=== PATIENT | female | born 2000 | race Caucasian/White ===

== ENCOUNTER 2023-04-12 12:27 | Emergency (ER) | payer OTHER, BC, SELFPAY ==
[2023-04-12 12:48] VITALS: BP 110/72; PULSE 82; RESP 14; TEMP 36.7; O2SAT 97; BMI 29.2
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
== END 2023-04-12 14:37 | disposition home or self-care (01) ==
PROVIDERS: Emergency Provider Emergency Medicine Emergency Medical Services
DX: S39.012A Strain of muscle, fascia and tendon of lower back, initial encounter (principal); S46.912A Strain of unspecified muscle, fascia and tendon at shoulder and upper arm level, left arm, initial encounter
CPT/HCPCS: 99283; 99284

== ENCOUNTER 2023-04-18 12:04 | Outpatient (CLI) | payer BC, SELFPAY ==
--- NOTE | 2023-04-18 12:15 | CRLHL7_ITS ---
For Patients: As a result of the Cures Act, medical imaging exams and procedure reports are released immediately into your electronic medical record. You may view this report before your referring provider. If you have questions, please contact your health care provider. INDICATION: First trimester scan, establish dates. COMPARISON: None. TECHNIQUE: Real-time alegre-scale imaging of the pelvis was performed. FINDINGS: Sonographic imaging demonstrates a single living intrauterine gestation. The embryo demonstrates a regular cardiac rate measuring 180 beats per minute. The embryo`s crown-rump length measurement of 1.7 cm corresponds to a gestational age of 8 weeks 1 day with a sonographic due date of 11/27/2023. There is a normal-appearing yolk sac. There are no gross abnormalities noted within the embryo at this early state of development. The gestational sac has a normal appearance. There is a 5 x 3 x 3 millimeter perigestational hemorrhage. The amount of fluid within the sac appears appropriate for gestational age. The cervix is closed. The myometrium appears normal. Corpus luteal cyst right ovary measuring 3.2 x 2.6 x 2.9 cm. Normal left ovary. Trace pelvic free fluid noted. IMPRESSION: Single living intrauterine with sonographic gestational age 8 weeks 1 day and sonographic due date 11/27/2023. Small lower uterine segment subchorionic hemorrhage measuring 5 millimeters. Dictated by Ritesh Cruz MD @ 04/19/2023 6:28:44 AM (Electronically Signed)
== END 2023-04-18 12:05 | disposition home or self-care (01) ==
LOC: US 12:05
PROVIDERS: Visit Provider Advanced Practice Midwife
DX: Z34.91 Encounter for supervision of normal pregnancy, unspecified, first trimester (principal); O20.9 Hemorrhage in early pregnancy, unspecified; Z3A.08 8 weeks gestation of pregnancy
CPT/HCPCS: 76817; 86703; 86706; 86803; 86850; 86900; 86901; 87086; 87186; 87340

== ENCOUNTER 2023-04-18 13:42 | Outpatient (CLI) | payer BC, SELFPAY | END 2023-04-18 13:43 | disposition home or self-care (01) | PROVIDERS: Visit Provider Advanced Practice Midwife | DX: Z34.91 Encounter for supervision of normal pregnancy, unspecified, first trimester (principal); O20.9 Hemorrhage in early pregnancy, unspecified; Z3A.08 8 weeks gestation of pregnancy | CPT/HCPCS: 86592; 86703; 86704; 86706; 86762; 86787; 86803; 86850; 86900; 86901; 87086; 87186; 87340 ==

== ENCOUNTER 2023-05-16 11:37 | Outpatient (CLI) | payer BC, SELFPAY | END 2023-05-16 11:38 | disposition home or self-care (01) | LOC: NFLDREF 05-17 22:08 | PROVIDERS: Visit Provider Obstetrics & Gynecology | DX: Z34.91 Encounter for supervision of normal pregnancy, unspecified, first trimester (principal); M41.9 Scoliosis, unspecified; M54.6 Pain in thoracic spine; Z3A.12 12 weeks gestation of pregnancy | CPT/HCPCS: 87491; 87591 ==

== ENCOUNTER 2023-07-07 12:48 | Outpatient (CLI) | payer BC, SELFPAY ==
--- NOTE | 2023-07-07 13:00 | CRLHL7_ITS ---
For Patients: As a result of the Century Cures Act, medical imaging exams and procedure reports are released immediately into your electronic medical record. You may view this report before your referring provider. If you have questions, please contact your health care provider. INDICATION: Evaluate anatomy. COMPARISON: 04/18/2023 TECHNIQUE: Real time alegre scale imaging of the fetus was performed as well as color Doppler analysis of the umbilical vessels. FINDINGS: Sonographic imaging demonstrates a single living intrauterine gestation. Fetus demonstrates a regular cardiac rate of 152 beats per minute. Fetus has a breech position. The placenta lies posteriorly without evidence of placenta previa. Edge of the placenta located 8.2 cm from the internal cervical os. Amniotic fluid volume appears normal. Single deepest vertical pocket: 4.1 cm. The cervix is closed and measures 3.7 cm in length. The composite ultrasound gestational age is calculated at 19 weeks 4 days with an estimated sonographic due date of 11/27/2023. The estimated weight is 350 grams which lies at the 67th %. The following biometric measurements were obtained: Biparietal diameter: 4.0 cm/18 weeks 1 day less than 3rd% Head circumference: 16.4 cm/19 weeks 1 day 10th% Abdominal circumference: 15.7 cm/20 weeks 6 days 71st% Femur length: 3.3 cm/20 weeks 3 days 57th% The HC/AC ratio measures: 1.05 range (1.08-1.26) On anatomic survey, there is a normal appearance of the cerebral ventricles, cavum septi pellucidi, cisterna magna and cerebellum. The nose, lips, and facial profile appear normal. The cervical, thoracic and lumbar spine are well visualized and appear normal. Echogenic intracardiac focus left ventricle. The left and right ventricular outflow tracts appear normal. The diaphragm and stomach appear normal. The kidneys and bladder also appear normal. There is a normal three-vessel cord and cord insertion site. The four extremities appear normal. IMPRESSION: Concordance of clinical and sonographic dating. Left ventricular echogenic focus. Level 2 ultrasound recommended. Remainder anatomic survey normal. Estimated weight 67th percentile. Abdominal circumference 71st percentile. BPD less than 3rd percentile. HC 10th percentile. Dictated by Ritesh Cruz MD @ 07/07/2023 3:11:30 PM (Electronically Signed)
== END 2023-07-07 12:49 | disposition home or self-care (01) ==
LOC: US 12:51
PROVIDERS: Visit Provider Advanced Practice Midwife
DX: Z34.92 Encounter for supervision of normal pregnancy, unspecified, second trimester (principal); Z3A.19 19 weeks gestation of pregnancy
CPT/HCPCS: 76805

== ENCOUNTER 2023-07-12 14:30 | Outpatient (RCR) | payer BC, SELFPAY | END 2023-11-02 10:04 | disposition home or self-care (01) | PROVIDERS: Visit Provider Obstetrics & Gynecology | DX: Z34.90 Encounter for supervision of normal pregnancy, unspecified, unspecified trimester (principal); M41.9 Scoliosis, unspecified; M54.6 Pain in thoracic spine; N39.3 Stress incontinence (female) (male); R39.14 Feeling of incomplete bladder emptying; R10.2 Pelvic and perineal pain; M25.552 Pain in left hip; Z51.89 Encounter for other specified aftercare | CPT/HCPCS: 97110; 97112; 97161; 97535 ==

== ENCOUNTER 2023-09-02 13:13 | Outpatient (CLI) | payer BC, SELFPAY | END 2023-09-02 13:14 | disposition home or self-care (01) | LOC: NFLDREF 09-14 14:14 | PROVIDERS: Visit Provider Advanced Practice Midwife | DX: Z34.93 Encounter for supervision of normal pregnancy, unspecified, third trimester (principal) | CPT/HCPCS: 86592 ==

== ENCOUNTER 2023-10-14 15:30 | Outpatient (CLI) | payer BC, SELFPAY | END 2023-10-14 15:31 | disposition home or self-care (01) | LOC: NFLDREF 11-03 09:04 | PROVIDERS: PCP Advanced Practice Midwife; Referring Provider Advanced Practice Midwife; Visit Provider Advanced Practice Midwife | DX: Z34.93 Encounter for supervision of normal pregnancy, unspecified, third trimester (principal) | CPT/HCPCS: 82728 ==

== ENCOUNTER 2023-10-28 11:30 | Outpatient (CLI) | payer BC, SELFPAY | END 2023-10-28 11:31 | disposition home or self-care (01) | LOC: NFLDREF 11-17 14:16 | PROVIDERS: Referring Provider Advanced Practice Midwife; Visit Provider Advanced Practice Midwife | DX: Z34.03 Encounter for supervision of normal first pregnancy, third trimester (principal) | CPT/HCPCS: 87081; 87653 ==

== ENCOUNTER 2023-12-01 05:42 | Inpatient (IN) | payer BC, SELFPAY ==
[2023-12-01] VITALS (48 sets, daily range): BP systolic 84–135; BP diastolic 50–91; PULSE 65–109; RESP 12–20; TEMP 36.6–37; O2SAT 94–100; BMI 33.7
[2023-12-01] MEDS: hydrOXYzine pamoate 25 MG CAPSULE 100 MG PO (00:53)
[2023-12-01] MEDS: MORPHINE 10 MG/ML inj IM (00:54)
[2023-12-01] MEDS: AMPICILLIN 2 GM in 0.9 % SODIUM CHLORIDE Mini-bag 100 ML IVPB (06:03)
[2023-12-01] MEDS: LACTATED RINGERS 1000 ML 1,000 ML IV (06:03)
--- NOTE | 2023-12-01 06:05 | P.LDBA_ITS ---
Subjective History of Present Illness Narrative: Ainsley is a 23 yo at 41 0/7 weeks gestation being admitted to Labor and Delivery for spontaneous onset of labor. Her contractions started yesterday and became more intense throughout the day. She presented to triage last night. She was 2/80/-3 but painfully camden. She was offered morphine and Vistaril with discharge home or monitoring/therapeutic sleep. After receiving morphine, she did side lying release then she was able to rest for a few hours. Her contractions spaced and became irregular. On recheck, she had made good cervical change. Recommend admission due to post-dates and for antibiotic administration. She is GBS +. Her labor is supported by her boyfriend and her mother. Her full history and physical was dictated by Renetta Novak CNM on 11/04/2023. Please see this for details. Specific Issues/Plans G1 H & P done 11/04/23 by Renetta Novak 1. Hx of anxiety and depression. Mostly in teens; no medication or therapy at this time 2. Scoliosis Has not been evaluated since high school Thoracic back pain at 12 weeks: PT referral Consider Anesthesia consult: completed 09/11, see note 3. Asymptomatic bacteriuria at 1st OB: E coli, treated with antibiotics 4. 20 wk Anatomy scan: echogenic focus, BPD ,3%, HC 10% Referral to perinatology placed for level II: normal exam, no further evaluation recommended. Offered genetic screening, declined 5. Anemia at 28 weeks. Starting PO iron. 6. GBS positive, ok with antibiotics in labor COVID: first series done in 2020 Flu: 04/18/2023 Tdap: 09/16/2023 32wk Mental Health: 09/30/2023 34wk Hgb: 10/14/2023 OB - Problem Based A/P Additional Plan (1) Pain during labor: Status: Acute (2) Post term , 41 weeks: Status: Acute (3) Group B Streptococcus carrier, antepartum: Status: Acute Plan ASSESSMENT:? 23 at 41.0 weeks gestation? Post-term complicated by:?Hx of Anxiety/Depression, scoliosis, asymptomatic bacteriuria in early , anemia Labor type: Spontaneous, Early labor? Category 1 FHR pattern.?? Labor complicated by: n/a? GBS positive? ? PLAN:? 1. Routine intrapartum cares as ordered. Continue with expectant management. Discussed that we could AROM if needed after antibiotics have been in for at least 2 hours. 2. Monitoring per policy, continuous after morphine and patient was in bed. She can be switched to intermittent if baby is reactive this morning. 3. Planning unmedicated . Desires water . Consent signed. Hep C negative. Candidate for analgesia of choice if desired.?? 4. Patient encouraged to reposition and ambulate to promote physiologic labor and .? 5. GBS prophylaxis initiated for GBS positive status. Will treat with antibiotics per protocol. 6. Anticipate ? Delivery/Labor/Induction Plan Plan: expectant management OB Exam Physical Exam Vital signs: Temp Pulse BP 98.0 F 91 112/62 12/01/23 00:08 12/01/23 05:47 12/01/23 05:47 Narrative: Vitals Reviewed Constitutional:? Alert and oriented x3 HEENT:? Normocephalic, atraumatic Neck:? Supple Lungs:? Clear to auscultation bilaterally Heart:? Regular rate and rhythm, no murmur, rub or gallop Abdomen:? Soft, nontender, and gravid. Vertex by Sae's, confirmed with cervical exam. Extremities:? No edema or erythema Cervix: 5 cm/100%/-1 station/vertex with bulging bag of water per RN NST: 120 bpm/moderate variability/15x15 accelerations/no dec elerations/contractions irregular
--- NOTE | 2023-12-01 08:07 | PM.OBPNL ---
Subjective Time Seen by Provider: 08:00 Date Seen: 12/01/23 Narrative: Ainsley is still waking up from the morphine Vistaril she received over night and still somewhat groggy. Contractions did space out after this medication but she still camden every 4-9 minutes and they are starting to feel more uncomfortable again. We discussed options for continuing labor including expectant management and AROM. She would like to proceed with expectant management at this time and will consider AROM later if labor doesn't continue to progress on its own. Encouraged labor warm up and upright positions. She is supported by her partner and her parents. Objective Vital Signs: Last Vital Signs Temp 98.4 F 12/01/23 07:25 Pulse 88 12/01/23 07:25 Resp 12 12/01/23 07:25 BP 107/58 L 12/01/23 07:25 Contractions Monitor mode: External Contraction Frequency: 4-9 Contraction pattern: Irregular Contraction intensity: Moderate Assessment Assessment: early labor Heart Rate Baseline: 125 [employer] Variability: Moderate (6-25) Monitor Accelerations: Present Monitor Decelerations: None Plan Plan: ASSESSMENT:? 23 at 41.0 weeks gestation? Post-term complicated by:?Hx of Anxiety/Depression, scoliosis, asymptomatic bacteriuria in early , anemia Labor type: Spontaneous, Early labor? Category 1 FHR pattern.?? Labor complicated by: n/a? GBS positive? ? PLAN:? 1. Routine intrapartum cares as ordered. Continue with expectant management. Will consider AROM later if not progressing on her own. 2. Monitoring per policy. 3. Planning unmedicated . Desires water . Consent signed. Hep C negative. Candidate for analgesia of choice if desired.?? 4. Patient encouraged to reposition and ambulate to promote physiologic labor and .? 5. GBS prophylaxis continued for GBS positive status. Will treat with antibiotics per protocol. 6. Anticipate ?
[2023-12-01] MEDS: AMPICILLIN 1 GM in 0.9 % SODIUM CHLORIDE Mini-bag 100 ML IVPB ×3 (09:27→22:16)
--- NOTE | 2023-12-01 11:49 | PM.OBPNL ---
Subjective Time Seen by Provider: 11:45 Date Seen: 12/01/23 Narrative: Ainsley has been upright changing positions and using labor ball. She is coping well with contractions. She denies an increase in intensity at this time. SVE performed with informed consent and found to be unchanged at 5cm/90%/-1 with a bulging bag. We discussed options of continuing with expectant management or AROM. She would like to proceed with AROM. Risks and benefits discussed. Moderate amount of thin meconium stained fluid noted with AROM. Encouraged her to continue with labor circuits and upright positions. She is aware that she can request hydrotherapy whenever she desires. Objective Vital Signs: Last Vital Signs Temp 98.4 F 12/01/23 07:25 Pulse 88 12/01/23 07:25 Resp 12 12/01/23 07:25 BP 107/58 L 12/01/23 07:25 Pelvic Exam Dilation (cm): 5 Effacement (%): 90 Station: -1 Contractions Monitor mode: External Contraction Frequency: 4-5 min Contraction pattern: Regular Contraction intensity: Moderate Assessment Assessment: early labor Station: -1 Amniotic Membrane Status: AROM (light mec fluid) Status: Category l Heart Rate Baseline: 130 Healthcare Social Worker Variability: Moderate (6-25) Monitor Accelerations: Present Monitor Decelerations: None Plan Plan: ASSESSMENT:? 23 at 41.0 weeks gestation? Post-term complicated by:?Hx of Anxiety/Depression, scoliosis, asymptomatic bacteriuria in early , anemia Labor type: Spontaneous, Early labor? Category 1 FHR pattern.?? Labor complicated by: light meconium stained fluid GBS positive? ? PLAN:? 1. Routine intrapartum cares as ordered. Continue with expectant management after AROM. 2. Monitoring per policy, intermittent if baby is reactive after AROM and fluid remains light stained and not thick stained. 3. Planning unmedicated . Desires water . Consent signed. Hep C negative. Candidate for analgesia of choice if desired.?? 4. Patient encouraged to reposition and ambulate to promote physiologic labor and .? 5. GBS prophylaxis continued for GBS positive status per protocol. 6. Anticipate .?
[2023-12-01] MEDS: ONDANSETRON 2 MG/ML inj 4 MG IV (17:52)
[2023-12-01] MEDS: LIDOCAINE 2% (PF) 5 ML VIAL EPIDURAL (20:00)
--- NOTE | 2023-12-01 20:12 | PM.OBPNL ---
Subjective Time Seen by Provider: 19:30 Date Seen: 12/01/23 Narrative: Ainsley has continued to labor in the tub and in upright positions. She is coping well with contractions but is having back pain that is getting more difficult for her to cope with. She is using nitrous for some relief. She is supported by her partner, mom and nursing staff. she requested an epidural and a SVE was offered before a final decision was made. She had not made cervical change from and earlier RN exam so made the decision to get an epidural. She is content with this plan and declined other options at this time. Objective Vital Signs: Last Vital Signs Temp 97.8 F 12/01/23 19:29 Pulse 87 12/01/23 20:11 Resp 20 12/01/23 19:29 BP 122/81 12/01/23 20:11 Pulse Ox 100 12/01/23 20:08 Pelvic Exam Dilation (cm): 7 Effacement (%): 90 Station: -1 Contractions Monitor mode: External Contraction Frequency: 2-4 min Contraction pattern: Regular Contraction intensity: Strong/Firm Assessment Assessment: active labor Station: -1 Amniotic Membrane Status: AROM (light mec fluid) Status: Category l Heart Rate Baseline: 130 Care Home Variability: Moderate (6-25) Monitor Accelerations: Present Monitor Decelerations: None Plan Plan: ASSESSMENT:? 23 at 41.0 weeks gestation? Post-term complicated by:?Hx of Anxiety/Depression, scoliosis, asymptomatic bacteriuria in early , anemia Labor type: Spontaneous, active labor? Category 1 FHR pattern.?? Labor complicated by: light meconium stained fluid GBS positive? ? PLAN:? 1. Routine intrapartum cares as ordered. Continue with expectant management. 2. Monitoring per policy, continuous monitoring after epidural placement per unit policy. 3. Patient encouraged to work with nursing change positions to promote physiologic labor and .? 5. GBS prophylaxis continued for GBS positive status per protocol. 6. Anticipate .?
[2023-12-01] MEDS: ROPIVACAINE 0.2 % PF 10 ML INJ 20 MG EPIDURAL (20:20)
[2023-12-01] MEDS: ROPIVACAINE 0.2% 100 ml 100 ML 12 MG EPIDURAL (20:21)
--- NOTE | 2023-12-01 20:23 | P.ANBPRC_ITS ---
[facility] Medical History (Updated 12/01/23 @ 06:29 by Danielle Hung CNM) Anxiety and depression ?F41.9 - Anxiety disorder, unspecified (ICD-10) ?F32.A - Depression, unspecified (ICD-10) Surgical History (Updated 04/18/23 @ 13:53 by Danielle Hung CNM) [place] teeth removed ?K08.409 - Partial loss of teeth, unspecified cause, unspecified class (ICD- 10) Social History (Updated 04/19/23 @ 15:21 by Danielle Hung CNM) Narrative: SOCIAL Education: High school Work: employed Partner: Present Lives with: alone Pets: none Abuse: Denies past/present Special Diet: Denies Ok with a blood transfusion: yes Culture or christian beliefs: denies RISK FACTORS Exercise Times/wk: sometimes, 1-2 times a week Depression/Anxiety: hx of anxiety and depression HARMEET: 6 PHQ 9: 3 Seat Belt Use: Routinely Smoking: Denies past/present Alcohol/day: Denies while Caffeine: once in a while Drug Use: Denies past/present Chicken Pox: Yes as a child MRSA: Denies What is your current living situation?: I presently have a place to live Problems where you live: no known problems In the past 12 months, utilities in danger of being shut off: no In past 12 months, lack of transportation kept you from medical appts, meetings, work, or getting things needed for daily living: no In the past 12 mos, have been you worried that your food would run out before you had money to buy more?: never true In the past 12 mos, the food you bought just didn't last and you didn't have money to buy more?: never true Smoking Status: Former smoker How often does anyone, including family, friends and others, physically hurt you : never How often does anyone, including family, friends and others, insult or talk down to you: never How often does anyone, including family, friends and others, threaten you with harm: never How often does anyone, including family, friends and others, scream or curse at you: never Little interest or pleasure in doing things: not at all Feeling down, depressed, or hopeless: several days Meds Home Medications and Allergies Home Medications ?Medication ?Instructions ?Recorded ?Confirmed ?Type vit no.95-ferrous 1 tab PO DAILY 04/12/23 12/01/23 History fumarate 28 mg-folic acid 800 mcg tablet () aspirin 81 mg tablet,delayed 81 mg PO QDAY 07/07/23 12/01/23 History release (Adult Aspirin Regimen) ferrous sulfate 27 mg iron tablet 27 mg PO QDAY 09/16/23 12/01/23 History Allergies Allergy/AdvReac Type Severity Reaction Status Date / Time No Known Drug Allergies Allergy Verified 11/29/23 06:53 Results Vital Signs Vital Signs: Last Vital Signs Temp 97.8 F 12/01/23 19:29 Pulse 89 12/01/23 20:21 Resp 20 12/01/23 19:29 BP 98/60 12/01/23 20:21 Pulse Ox 100 12/01/23 20:18 Weight: 89 kg Height: 162.56 cm Anesthesia Procedures Epidural Insertion Patient Location: OB Start Time: 19:40 Stop Time: 20:23 Start Date: 12/01/23 Stop Date: 12/01/23 Reason for Block: procedure for pain Patient Position: sitting Performed By: Anuel Gomez Preanesthetic Checklist: IV checked, risks and benefits discussed, surgical consent, monitors and equipment checked, pre-op evaluation, timeout performed and anesthesia consent Prep: chlorhexidine gluconate Monitoring: blood pressure monitoring, continuous pulse oximetry and heart rate Approach: midline Vertebral Space: lumbar (1-5) Epidural Technique: BALJIT air Needle Type: Tuohy needle Injection Technique: continuous catheter Needle gauge: 17 Needle Length (cm): 10 cm Needle Insertion Depth (cm): 7 Catheter Gauge: 19 Catheter Type: multi-orifice Catheter at skin depth (cm): 12 Test Dose Result: negative and lidocaine 1.5% with epinephrine 1 to 200,000
[2023-12-01] MEDS: PHENYLEPHRINE 100 MCG/ML SYRINGE IVP (21:13)
[2023-12-01] MEDS: LACTATED RINGERS 1000 ML 1,000 ML 125 ML IV (22:13)
[2023-12-02] VITALS (17 sets, daily range): BP systolic 95–133; BP diastolic 56–95; PULSE 81–137; RESP 14–15; TEMP 36.7–36.9; O2SAT 97–98
--- NOTE | 2023-12-02 01:00 | P.OBPN_ITS ---
Subjective Date Seen: 12/02/23 Narrative: Marciano has an epidural in place that has given her great pain relief. She began to feel pressure around 2300 and was found to be complete. She began pushing shortly after that. She is pushing effectively in multiple different positions. Objective Vital Signs: Last Vital Signs Temp 98.1 F 12/01/23 21:31 Pulse 109 H 12/02/23 00:40 Resp 20 12/01/23 19:29 BP 114/71 12/02/23 00:40 Pulse Ox 100 12/01/23 21:19 Pelvic Exam Dilation (cm): 10 Effacement (%): 100 Station: +1 Contractions Monitor mode: External Contraction Frequency: 2-4 min Contraction pattern: Regular Contraction intensity: Strong/Firm Assessment Assessment: active labor Station: -1 Amniotic Membrane Status: AROM (light mec fluid) Status: Category l Heart Rate Baseline: 140 Drug And Alcohol Counsellor Variability: Moderate (6-25) Monitor Accelerations: Present Monitor Decelerations: None Plan Plan: ASSESSMENT:? 23 at 41.1 weeks gestation? Post-term complicated by:?Hx of Anxiety/Depression, scoliosis, asymptomatic bacteriuria in early , anemia Labor type: Spontaneous, active labor? Category 1 FHR pattern.?? Labor complicated by: light meconium stained fluid GBS positive? ? PLAN:? 1. Routine intrapartum cares as ordered. Continue with expectant management. 2. Continuous monitoring per policy. 3. Patient encouraged to work with nursing change positions to promote physiologic labor and .? 5. GBS prophylaxis continued for GBS positive status per protocol. 6. Anticipate .
[2023-12-02] MEDS: AMPICILLIN 1 GM in 0.9 % SODIUM CHLORIDE Mini-bag 100 ML IVPB ×2 (01:40→02:42)
[2023-12-02] MEDS: OXYTOCIN 30 unit/500 ML in NS 30 UNIT/500 ML BAG 300 UNIT IVPB (02:33)
[2023-12-02] MEDS: LIDOCAINE 1 % PF 30 ML INJECTION (02:39)
--- NOTE | 2023-12-02 02:59 | W.PM.OBVAGDE ---
OB Procedure Vag Delivery Mother Details Mother Details: The patient is a 23 year-old, 1, Para 0, admitted on 12/01/23 at 41.1 Days gestation. : 1 Para: 1 Weeks Gestation: 41.1 Admission Date: 12/01/23 Additional Details Amniotic Membrane Status: AROM Amniotic Membrane Rupture Date: 12/01/23 Amniotic Membrane Rupture Time: 11:38 Amniotic Membrane Fluid Description: Meconium Stained Analgesia/Anesthesia Type: Epidural Waterbirth: No Pitcoin: Yes (AMTSL) Intrapartal Events: Labor Augmentation, Prolonged Labor >20 Hrs and Prolonged 2nd Stage >2.5 Hrs Delivery augmentation: rupture of membranes Labor Onset: 05:30 Complete: 23:02 Pushin:05 Heart: heart tones during second stage were category 2. Baseline 140-150 with accels, moderate variability and some variable decels. Delivery Details Delivery Date: 12/02/23 Delivery Time: 02:27 Route of delivery: Infant Gender: Female Viability: Alive; Heart Rate Present Position at Delivery: OP Delivery Details: Patient was admitted for active labor post dates and progressed with AROM augmentation. AROM noted at 1138 with thin meconium stained fluid. Patient was complete at 2302 and pushing at 2305. of a viable female at 0227 on her back after many position changes thought the second stage. Vertex delivered LOP. No nuchal cord or shoulder. Body delivered easily and without incident. Infant passed to mothers abdomen with a vigorous cry. Cord was clamped and cut at > 5 minutes. APGARS were 7 at one minute and 9 at five minutes respectively. Mouth was bulb suctioned. Intact placenta with a 3 vessel cord delivered spontaneously at 0234. Fundus firm. 2nd degree identified and repaired in typical fashion. QBL 200 cc. Mother and baby stable; mother plans to breastfeed. weight pending.? 1 Minute Interval Total Score: 7 5 Minute Interval Total Score: 9 Additional Details Shoulder Dystocia: No Placenta Delivery Time: 02:34 Placental Delivery Description: Spontaneous Delivery repair: Vicryl Procedure Done: Global Blood Loss: 200 Laceration: Perineal - 2nd Degree Episiotomy Description: None Blood Loss Measurement Type: QBL Bakri Used: No Sponge/Need Count Correct: Yes Cord Vessel Description: 3 Vessels Event Summary Status: Mother and were stable after delivery. Disposition: floor
[2023-12-02] MEDS: IBUPROFEN 600 MG TABLET PO ×3 (04:31→17:40)
[2023-12-02] MEDS: DOCUSATE SODIUM 100 MG CAPSULE PO (09:29)
--- NOTE | 2023-12-02 13:36 | PM.ANPOST ---
Post Anesthesia Note Post Anesthesia Note Patient seen: Inpatient Respiratory Status: adequate Cardiovascular Status: adequate Mental Status: baseline Pain: adequate Temp: baseline Anesthetic awareness: N/A Complications: none Follow care: none
[2023-12-02 18:46] LABS: Rapid Plasma Reagin (RPR) Non Reactive (Non Reactive)
[2023-12-03 00:12] VITALS: BP 102/68; PULSE 93; RESP 16; TEMP 36.7; O2SAT 97
[2023-12-03 04:26] VITALS: BP 102/68; PULSE 89; RESP 16; TEMP 36.8; O2SAT 97
[2023-12-03 09:44] VITALS: BP 108/68; PULSE 101; RESP 16; O2SAT 97
--- NOTE | 2023-12-03 10:20 | PM.OBDSVD1 ---
DS: Providers Provider Date Seen: 12/03/23 Date of admission: 12/01/23 05:42 Primary care physician: Not a Local Provider Admitting Clinician: Danielle Hung CNM Attending Physician on discharge: Danielle Hung CNM DS: Diagnosis Discharge Diagnosis (1) care and examination immediately after delivery: Status: Acute (2) Lactating mother: Status: Acute Exam Narrative: Exam Narrative: GENERAL APPEARANCE:? normal affect, alert, no distress MOOD:? appropriate CHEST:? clear to auscultation HEART:? regular rate and rhythm ABDOMEN:? soft, non-tender the uterine fundus is At Umbilicus, Midline and is appropriate for the stage of recovery. PERINEUM:? mild edema of the perineum, there is a Perineal Laceration,?2nd degree, that is healing well. EXTREMITIES:? normal and no edema Const: Vital Signs, click to edit/add: Vital Signs - 24 hr 12/02/23 14:09 12/02/23 16:48 12/02/23 19:27 Temperature 98.3 F 98.5 F 98.1 F Pulse Rate [Pulse Oximeter] 88 98 93 Respiratory Rate 14 15 15 Blood Pressure [Ri ght Arm] 104/65 109/72 104/71 Pulse Oximetry 98 98 97 Oxygen Delivery Me thod Room Air Room Air 12/03/23 00:12 12/03/23 04:26 12/03/23 09:44 Temperature 98.1 F 98.2 F Pulse Rate [Pulse Oximeter] 93 89 101 H Respiratory Rate 16 16 16 Blood Pressure [Ri ght Arm] 102/68 102/68 108/68 Pulse Oximetry 97 97 97 Oxygen Delivery Me thod Room Air Room Air Room Air Documenting provider has reviewed patient's vital signs: yes OB - DS: Summary Hospital Course Hospital Course: Ainsley is a 23 y.o. G 1 P 1 who was admitted to [facility] & [facility] for spontaneous onset of labor. ?She had a NVD that was uncomplicated. The patient feels well. ?The pain is well controlled with current medications. ?She has no new complaints. ?She is breast feeding and reports things are going well. the patient has done well.? Vitals have been stable.? She has remained afebrile.? Has a good appetite, is tolerating a general diet. ?She is voiding without difficulty.? She is passing gas and has not had a bowel movement.? She is ambulating and denies any dizziness.? Has small amount of rubra lochia. She is planning condoms for prevention. Problems: none plan: Discharge home with baby. Follow up in 2 weeks and 6 weeks. , may see if needed Hgb 10.0. Iron supplement ordered orally every other day Peripartum Data Infant delivery method: Vaginal Laceration description: Perineal - 2nd Degree complications: none Infant Gender: Female Infant Discharge Plan: Home Status at Discharge Functional status at discharge: independent ambulation Overall status at discharge: patient is progressing back to baseline Time Spent with Patient Time attestation: Total time spent providing and/or coordinating discharge services: Time spent: Less than 30 minutes Discharge Plan Discharge Disposition: Home, Self-Care Date of Admission: 12/01/23 05:42 Attending Provider on Discharge: Danielle Hung Primary Care Provider: Provider,Not a Local Condition: Stable Anticipated Discharge Date/Time: 12/03/23 12:00 Discharge Medications: New docusate sodium 100 mg Capsule 100 mg PO DAILY Qty: 90 0RF ibuprofen 600 mg Tablet 600 mg PO Q6H PRNQty: 60 0RF Continued ferrous sulfate 27 mg iron tablet 27 mg PO QDAY PNV cmb#[id number]-ferrous fumarate-FA [] 28 mg iron- 800 mcg tablet 1 tab PO DAILY Discontinued aspirin [Adult Aspirin Regimen] 81 mg tablet,delayed release (DR/EC) 81 mg PO QDAY Discharge Orders: Discharge Order (Routine); Ordered 12/03/23 Ordered By: Danielle Hung Patient Education: OB Over the Counter Medication Information, OB Vaginal/Breast Feeding Additional Instructions: Discharge instructions were reviewed with the patient including signs and symptoms of infection and home going medications Nothing vaginally for 6 weeks: no tampons or intercourse Do not drive while taking narcotic pain medication(s) Off Work or School for 6 weeks 2-week visit: discuss feeding concerns, review control options and screen for anxiety/depression. 6-week visit for an annual exam. consultation services are available to all mothers and babies for the first year after delivery.? To make an appointment, please call [phone]. Activity Level: Activity as Tolerated Discharge Diet: Regular Follow Up Appointments: [facility] [Provider Group] Forms: MyHealth Info Instructions
== END 2023-12-03 11:45 | disposition home or self-care (01) | DRG 560 ==
LOC: OB OUT 05:43 → OB 12-03 10:24
PROVIDERS: Advanced Practice Midwife; Admitting Provider Advanced Practice Midwife; Visit Provider Advanced Practice Midwife
DX: O48.0 Post-term pregnancy (principal); O99.824 Streptococcus B carrier state complicating childbirth; O77.0 Labor and delivery complicated by meconium in amniotic fluid; M41.9 Scoliosis, unspecified; O63.0 Prolonged first stage (of labor); O63.1 Prolonged second stage (of labor); O70.1 Second degree perineal laceration during delivery; Z37.0 Single live birth; Z3A.41 41 weeks gestation of pregnancy
CPT/HCPCS: 01967; 36415; 59025; 84112; 85018; 86592; G0463; A9270; J0290; J2001; J2270; J2371; J2405; J2795; J7120

== ENCOUNTER 2024-09-21 12:02 | Outpatient (CLI) | payer BC, SELFPAY ==
--- NOTE | 2024-09-21 12:15 | CRLHL7_ITS ---
For Patients: As a result of the Cures Act, medical imaging exams and procedure reports are released immediately into your electronic medical record. You may view this report before your referring provider. If you have questions, please contact your health care provider. OB ULTRASOUND INDICATION: Dating and viability. TECHNIQUE: Real time grayscale imaging of the fetus was performed. Transvaginal. LMP: 07/22/2024. TORREY by LMP: 04/28/2025. GA: 8 w, 5 d. Previous US: No. CRL: 2.1 cm. 8 w 5 d. TORREY: 04/28/2025. FHR: 176 BPM. Gestational sac: 3.6 cm. Appears within normal limits. Yolk sac: 3.2 mm. Appears within normal limits. Right ovary: 2.7 x 2.9 x 2.1 cm. CL. Left ovary: 2.2 x 1.6 x 1.9 cm. IMPRESSION: Normal early IUP with gestational age 8 weeks 5 days and sonographic due date 04/28/2025. Ritesh Cruz M.D. Diagnostic Radiologist [email or web address] [email or web address] dale/Dictated by: Ritesh Cruz MD @ 09/21/2024 1:04:00 PM (Electronically Signed)
== END 2024-09-21 12:03 | disposition home or self-care (01) ==
LOC: US 12:03
PROVIDERS: Visit Provider Advanced Practice Midwife
DX: Z34.91 Encounter for supervision of normal pregnancy, unspecified, first trimester (principal); Z3A.08 8 weeks gestation of pregnancy
CPT/HCPCS: 76817; 83021; 86592; 86703; 86704; 86706; 86762; 86787; 86803; 86850; 86900; 86901; 87086; 87340; 87491; 87591

== ENCOUNTER 2024-12-07 11:59 | Outpatient (CLI) | payer BC, SELFPAY ==
--- NOTE | 2024-12-07 12:15 | CRLHL7_ITS ---
For Patients: As a result of the Century Cures Act, medical imaging exams and procedure reports are released immediately into your electronic medical record. You may view this report before your referring provider. If you have questions, please contact your health care provider. TORREY by LMP: 07/22/2024. GA: 19w, 5d. INDICATION: screen. CERVIX: Visualized. Measurement: 4.7 cm. POSITIONING: Multiple positions. AMNIOTIC FLUID: 4.9 cm SDP. PLACENTA: Technique: Transabdominal. PLACENTA POSITION: Fundal. Placenta tip to internal os: 10.2 cm. DOPPLER: heart rate: 159 bpm. Umbilical artery: 3-vessel cord. Placental insertion: Central. Biometry: BPD: 4.7 cm. 20w, 1d, 66 percent. HC: 17.3 cm. 19w, 6d, 51 percent. AC: 16.5 cm. 21w, 4d, 92 percent. FL: 3.2 cm. 19w, 6d, 49 percent. FL/AC ratio: 19.32 percent. HC/AC ratio: 1.05. SURVEY: Observed Structures Cerebellum: Yes. 2.0 cm; 20w 1d. Cisterna Magna: Yes. 3.1 mm. Nuchal Fold: Yes. 5.6 mm. Lateral Ventricle: Yes. 6.1 mm. CSP: Yes. Midline Falx: Yes. Choroid Plexus: Yes. Spine: Yes. Stomach: Yes. Abd Cord Insertion: Yes. Urinary Bladder: Yes. Kidneys: Yes. Diaphragm: Yes. Nose/lips: Yes. Orbital view: es. Profile: Yes. Upper Extremities: Yes. Lower Extremities: Yes. Hands: Yes. Feet: Yes. Four-Chamber Heart: Yes. LVOT: Yes. RVOT: Yes. 3VV: Yes. 3VTV: Yes. EFW: 369 g. Weight: 0 lbs, 13 oz. age by this US: 20w, 2d. TORREY by this US: 04/24/2025. Percentile by TORREY: 92 percent. IMPRESSION: 1. Concordance of clinical and sonographic dating. 2. Normal anatomic survey. Ritesh Cruz M.D. Diagnostic Radiologist [email or web address] bM/Dictated by: Ritesh Cruz MD @ 12/10/2024 4:27:00 PM (Electronically Signed)
== END 2024-12-07 12:00 | disposition home or self-care (01) ==
LOC: US 12:00
PROVIDERS: Visit Provider Advanced Practice Midwife
DX: Z34.92 Encounter for supervision of normal pregnancy, unspecified, second trimester (principal); Z3A.19 19 weeks gestation of pregnancy
CPT/HCPCS: 76805

== ENCOUNTER 2024-12-27 14:03 | Outpatient (CLI) | payer BC, SELFPAY | END 2024-12-27 14:04 | disposition home or self-care (01) | LOC: NFLDREF 14:04 | PROVIDERS: Visit Provider Advanced Practice Midwife | DX: R30.0 Dysuria (principal) | CPT/HCPCS: 87086 ==

== ENCOUNTER 2025-02-05 14:28 | Outpatient (CLI) | payer BC, SELFPAY | END 2025-02-05 14:29 | disposition home or self-care (01) | LOC: NFLDREF 02-11 01:46 | PROVIDERS: Visit Provider Midwife | DX: Z34.93 Encounter for supervision of normal pregnancy, unspecified, third trimester (principal); Z3A.28 28 weeks gestation of pregnancy | CPT/HCPCS: 86592 ==

== ENCOUNTER 2025-03-18 14:50 | Outpatient (CLI) | payer BC, SELFPAY | END 2025-03-18 14:51 | disposition home or self-care (01) | LOC: NFLDREF 03-24 03:27 | PROVIDERS: Visit Provider Advanced Practice Midwife | DX: Z34.93 Encounter for supervision of normal pregnancy, unspecified, third trimester (principal) | CPT/HCPCS: 82728 ==

== ENCOUNTER 2025-04-01 14:17 | Outpatient (CLI) | payer BC, SELFPAY ==
[2025-04-02 15:01] LABS: Strep B DNA Probe Negative (Negative)
[2025-04-02 15:10] LABS: Strep B Susceptibility Needed? No
== END 2025-04-01 14:18 | disposition home or self-care (01) ==
LOC: NFLDREF 14:18
PROVIDERS: Visit Provider Midwife
DX: Z34.83 Encounter for supervision of other normal pregnancy, third trimester (principal)
CPT/HCPCS: 87081; 87653

== ENCOUNTER 2025-04-24 22:00 | Inpatient (IN) | payer BC, SELFPAY ==
[2025-04-24 21:31] VITALS: BP 111/75; PULSE 105
[2025-04-24 21:41] VITALS: RESP 16; TEMP 36.8
[2025-04-24 22:06] VITALS: BMI 33.5
[2025-04-24 22:40] VITALS: RESP 16; TEMP 36.5
[2025-04-24 23:49] VITALS: BP 102/65; PULSE 99; RESP 16; TEMP 36.3
[2025-04-25] VITALS (17 sets, daily range): BP systolic 96–123; BP diastolic 52–78; PULSE 100–111; RESP 16–18; TEMP 36.7–36.9; O2SAT 96–98
[2025-04-25 01:14] LABS: Hematocrit* 34.8 % (33.0-51.0); Hemoglobin* 11.6 gm/dL (12.0-16.0); Immature Granulocytes Pct Auto 1.6 %; Mean Corpuscular HGB Conc 33 gm/dL (32-36); Mean Corpuscular Hemoglobin 28 pg (26-34); Mean Corpuscular Volume 85 fL (80-100); RDW Coefficient of Variation % 15.8 % (11.5-15.5); Red Blood Count* 4.10 m/uL (4.00-5.20); White Blood Count* 11.59 K/uL (4.50-11.00)
[2025-04-25 01:20] LABS: Immature Granulocytes Abs Auto 0.20 K/uL (0.00-0.30); Lymphocytes Absolute Auto 1.10 K/uL (0.90-2.90); Slide Review Reflex No
[2025-04-25] MEDS: LACTATED RINGERS 1000 ML 1,000 ML 1200 ML IV (02:25)
--- NOTE | 2025-04-25 02:48 | P.LDBA_ITS ---
Subjective History of Present Illness Narrative: Ainsley is a 24 yo at 39 4/7 weeks being admitted to Labor and Delivery for PROM followed by spontaneous labor. She arrived to triage around 9 pm last evening with a convincing story of SROM where she felt a pain in her side and hear an audible pop around 8 pm. She has been leaking clear fluid which was very evident on her pad when she arrived. Labor contractions started very shortly after SROM but were initially irregular but have slowly became more intense. We discussed a plan of expectant management for 6-12 hours to allow labor to begin on its own. She was 3 cm/70/-2 at 2317. She is supported in labor by her partner, Eloy. Her full history and physical was dictated by ARMAND Musa on 04/08/2026. Please see this for details. Specific Issues/Plans Partner: Eloy Unknown gender. H&P by Brisa Toro CNM on 04/08/25 # Close spaced pregnancies. ~8 months to LMP. # Hx of anxiety and depression. Mostly in teens; no medication or therapy at this time # Scoliosis. Received epidural with 1st delivery. #Anemia in - started iron at 28w qod Received iron dextran 03/22/25 restart oral iron supplement 04/15/25 Hgb 10.9 at 37 wks-received IV iron 03/22 COVID: initial series, not boosted, declined booster today Flu: 04/08/2025 RSV: declines 32 wk Mental Health: 03/01/2025 PHQ-9: 2 HARMEET-7: TDAP 03/01/25 OB - Problem Based A/P Additional Plan (1) 39 weeks gestation of : Status: Acute (2) PROM with onset of labor within 24 hours of rupture: Status: Acute (3) Anxiety and depression: Status: Chronic Plan ASSESSMENT:? 24 yo at 39.4 weeks gestation? complicated by:?closely spaced , hx of anxiety/depression, scoliosis, anemia Labor type: Spontaneous, Active labor? Category 1 FHR pattern.?? Labor complicated by: none? GBS negative? ? PLAN:? 1. Routine intrapartum cares as ordered. Continue with expectant management. We had discussed 6-12 hours of expectant management but it seems labor may be kicking in. 2. Monitoring per policy, intermittent? 3. Planning unmedicated . Desires water . Consent signed. Hep C negative. Candidate for analgesia of choice, if desired.?? 4. Patient encouraged to reposition and ambulate to promote physiologic labor and .? 5. Anticipate ? Delivery/Labor/Induction Plan Plan: expectant management OB Exam Physical Exam Vital signs: Temp Pulse Resp BP 98.5 F 99 16 102/65 04/25/25 01:07 04/24/25 23:49 04/25/25 01:07 04/24/25 23:49 Narrative: Vitals Reviewed Constitutional:? Alert and oriented x3 HEENT:? Normocephalic, atraumatic Neck:? Supple Lungs:? Clear to auscultation bilaterally Heart:? Regular rate and rhythm, no murmur, rub or gallop Abdomen:? Soft, nontender, and gravid. Vertex by Sae's, confirmed with c ervical exam. Extremities:? No edema or erythema Cervix: 7 cm/90%/0 station/vertex NST: 145 bpm/moderate variability/15x15 accelerations/no decelerations/contractions every 1-3 minutes, palpate moderate/strong Detailed Labor and Delivery Exam Patient Gravid: yes
--- NOTE | 2025-04-25 03:58 | W.PM.OBVAGDE ---
OB Procedure Vag Delivery Mother Details Mother Details: The patient is a 24 year-old, 2, now Para 2, admitted on 04/24/25 at 39.4 weeks gestation that presented with PROM and onset of labor shortly after arrival. : 2 Para: 2 Weeks Gestation: 39.4 Admission Date: 04/25/25 Additional Details Amniotic Membrane Status: SROM Amniotic Membrane Rupture Date: 04/25/25 Amniotic Membrane Rupture Time: 19:45 Amniotic Membrane Fluid Description: Clear Analgesia/Anesthesia Type: None Waterbirth: Yes Pitcoin: No (desired expectant management) Intrapartal Events: Precipitous Labor <3 Hrs Labor Onset: 02:08 Complete: 02:59 Pushin:59 Heart: heart tones during second stage were not auscultated during due to precip delivery. Delivery Details Delivery Date: 04/25/25 Delivery Time: 03:13 Route of delivery: Infant Gender: Female Infant Viability: Alive; Heart Rate Present Position at Delivery: OA Delivery Details: Patient was admitted for PROM with spontaneous labor shortly after arrival and progressed normally. SROM of clear fluid at 1945 on 04/24. Patient labored in the small tub before requesting and epidural. Anesthesia did arrive to the unit but patient began to feel pressure and did not feel she could sit for the epidural. She then entered the waterbirth tub. Patient was assumed complete with pushing at 0259. of a viable female at 0313 in semi-fowlers in the tub. Head delivered but patient did not have contraction, she was guided to push and her left leg was brought back to help as she was instructed to push. Vertex delivered OA. No nuchal cord or shoulder. Body delivered easily and without incident. Infant passed to mothers abdomen with a vigorous cry. Cord was clamped and cut at > 5 minutes. APGARS were 8 at one minute and 9 at five minutes respectively. Mouth was bulb suctioned. Intact placenta with a 3 vessel cord delivered spontaneously at 0328. Fundus firm. Small 1st degree identified, well approximated and not bleeding. QBL 25 +EBL 25 for total 50 cc. Mother and baby stable; mother plans to breastfeed. Infant weight 8lb 1oz. 1 Minute Interval Total Score: 8 5 Minute Interval Total Score: 9 Additional Details Shoulder Dystocia: No Placenta Delivery Time: 03:28 Placental Delivery Description: Spontaneous Delivery repair: Vicryl Procedure Done: Global Blood Loss: 50 Laceration: Perineal - 1st Degree (not repaired) Blood Loss Measurement Type: QBL (+EBL in tub) Bakri Used: No Cord Vessel Description: 3 Vessels Event Summary Status: Mother and were stable after delivery. Disposition: floor
[2025-04-25] MEDS: IBUPROFEN 600 MG TABLET PO (15:36)
[2025-04-25] MEDS: DOCUSATE SODIUM 100 MG CAPSULE PO (15:36)
[2025-04-26 00:15] VITALS: BP 108/63; PULSE 100; RESP 16; TEMP 36.6; O2SAT 97
[2025-04-26 03:45] VITALS: BP 106/69; PULSE 65; RESP 16; O2SAT 98
[2025-04-26] MEDS: DOCUSATE SODIUM 100 MG CAPSULE PO (09:21)
[2025-04-26 09:47] VITALS: BP 112/72; PULSE 84; RESP 16; TEMP 36.8; O2SAT 96
--- NOTE | 2025-04-26 13:37 | P.DS_ITS ---
DS: Providers Provider Time Seen by Provider: 12:00 Date Seen: 04/26/25 Primary care physician: Not a Local Provider Admitting Clinician: Danielle Hung CNM Attending Physician on discharge: Denita Stewart CNM Date of Discharge: 04/26/25 DS: Diagnosis Discharge Diagnosis (1) care and examination of lactating mother: Status: Acute (2) Hemorrhoids: Status: Acute (3) Anemia affecting in third trimester: Status: Acute Problem details: oral started 02/05/25 (4) Lactating mother: Status: Acute (5) Anxiety and depression: Status: Chronic Problem details: Reviewed s/sx of normal baby blues vs PP depression and anxiety. Pt denies prior hx of depression or anxiety. Exam Narrative: Exam Narrative: GENERAL APPEARANCE:? normal affect, alert, no distress? MOOD:? appropriate? CHEST:? clear to auscultation and percussion? HEART:? regular rate and rhythm? BREASTS: soft, nontender, no erythema, nipples intact? ABDOMEN:? soft, non-tender the uterine fundus is firm and is appropriate for the stage of recovery.? PERINEUM:? mild edema of the perineum, intact.? EXTREMITIES:? normal and no edema? Const: Vital Signs, click to edit/add: Vital Signs - 24 hr 04/25/25 15:38 04/25/25 19:37 04/26/25 00:15 Temperature 98.1 F 98.1 F 97.8 F Pulse Rate [Pulse Oximeter] 103 H 104 H 100 Respiratory Rate 16 16 16 Blood Pressure [Le ft Arm] 108/63 Blood Pressure [Ri ght Arm] 103/70 105/65 Pulse Oximetry 97 98 97 Oxygen Delivery Me thod Room Air Room Air Room Air 04/26/25 03:45 04/26/25 09:47 Temperature 98.2 F Pulse Rate [Pulse Oximeter] 65 84 Respiratory Rate 16 16 Blood Pressure [Le ft Arm] 106/69 112/72 Blood Pressure [Ri ght Arm] Pulse Oximetry 98 96 Oxygen Delivery Me thod Room Air Room Air OB - DS: Summary Hospital Course Hospital Course: The patient is a 24 year old G 2 P 2002 at 39 weeks gestation that was admitted to the Center on 04/24/25 for labor. She had an uncomplicated vaginal delivery. She delivered a viable female . She is breast feeding. Postpartu m the patient has done well. Peripartum Data delivery method: Vaginal Laceration description: None complications: none [place] Gender: Female Discharge Plan: Home Status at Discharge Functional status at discharge: independent ambulation Overall status at discharge: patient is progressing back to baseline Time Spent with Patient Time attestation: Total time spent providing and/or coordinating discharge services: Time spent: Less than 30 minutes Discharge Plan Discharge Disposition: Home, Self-Care Date of Admission: 04/24/25 22:00 Attending Provider on Discharge: Denita Stewart Primary Care Provider: Provider,Not a Local Condition: Stable Anticipated Discharge Date/Time: 04/26/25 09:45 Discharge Medications: New docusate sodium 100 mg capsule 100 mg PO BID PRNQty: 30 0RF Continued PNV 119-iron fum-folic acid 29 mg iron- 1 mg tablet 1 tab PO DAILY triamcinolone acetonide 0.5 % cream 1 applic topical TID Qty: 15 0RF hydrocortisone 2.5 % cream with perineal applicator 1 applic ME BID-QID PRN (Reason: hemorrhoids) Qty: 30 2RF Discharge Orders: Discharge Order (Routine); Ordered 04/26/25 Ordered By: Denita Stewart Consulting provider completed their portion of the discharge: Yes Patient Education: OB Over the Counter Medication Information, OB Vaginal/Breast Feeding Additional Instructions: Discharge instructions were reviewed with the patient including signs and symptoms of infection and home going medications.? Lifting Restrictions: 20 pounds for 6? weeks? ?? Off Work or School for 6 weeks.? ?? Symptoms to report to doctor:? -Bleeding that saturates more than one pad per hour? -Passing clots larger than the size of a golf ball? -Pain not relieved by prescribed medication? -Fever above 100.4 degrees Fahrenheit? -A foul vaginal odor? -Difficulty in emotions, mood and functions? -Thoughts of hurting yourself and/or ? -Painful, reddened area in your breast? -Any drainage, redness or tenderness in your IV/epidural site? -Severe headache that doesn't improve after taking medications? -Changes in vision, including temporary loss of vision, blurred vision, and/or light sensitivity? -Upper abdominal pain (usually under ribs on the right side)? -Decrease in urination or painful, frequent urinating? -Chest pain? -Shortness of breath? -Tenderness or pain with redness and/swelling in the calf(s) of your leg? ?? Follow Up in clinic in 2 and 6 weeks.?Please call the [facility] to schedule these follow up appointments. ?? consultation services are available to all mothers and babies for the first year after delivery.? To make an appointment, please call [phone].? ? Activity Level: Activity as Tolerated Discharge Diet: Regular Follow Up Appointments: Danielle Hung CNM [Certified Nurse [employer] Inspector, Certified Nurse [employer] Boat Inspector] Referral Note: 2wk Provider,Not a Local [Primary Care Provider, Family Practice] Forms: MyHealth Info Instructions
== END 2025-04-26 11:32 | disposition home or self-care (01) | DRG 560 ==
LOC: OB OUT 22:00 → OB 22:00
PROVIDERS: Admitting Provider Advanced Practice Midwife; Visit Provider Advanced Practice Midwife
DX: O42.02 Full-term premature rupture of membranes, onset of labor within 24 hours of rupture (principal); O62.3 Precipitate labor; O99.344 Other mental disorders complicating childbirth; F41.9 Anxiety disorder, unspecified; F32.A Depression, unspecified; O99.02 Anemia complicating childbirth; D64.9 Anemia, unspecified; M41.9 Scoliosis, unspecified; Z3A.39 39 weeks gestation of pregnancy; Z37.0 Single live birth
CPT/HCPCS: 36415; 84112; 85025; 86592; 86850; 86900; 86901; A9270; J7120

== ENCOUNTER 2025-06-07 10:42 | Outpatient (CLI) | payer BC, SELFPAY ==
[2025-06-07 13:27] LABS: Bacterial Vaginosis* POSITIVE (Negative); Candida glab/krus NOT DETECTED (No Detected)
== END 2025-06-07 10:43 | disposition home or self-care (01) ==
LOC: NFLDREF 10:42
PROVIDERS: Visit Provider Advanced Practice Midwife
DX: N93.9 Abnormal uterine and vaginal bleeding, unspecified (principal)
CPT/HCPCS: 81513; 87481; 87661